=== PATIENT | female | born 1960 | race Two or more races ===

== ENCOUNTER → 2020-08-12 | Outpatient (CLI) | payer OTHER ==
--- NOTE | 2020-08-12 10:38 | Diagnostic Imaging Report ---
Exam: KUB. Clinical History: Abdominal pain Comparison: None Findings: Frontal view of the abdomen demonstrates a nonobstructive bowel gas pattern with moderate retained stool. There are no suspicious calcifications.No acute bone abnormality. Impression: Findings which could be due to constipation. Signed by: Dr. Kenneth March M.D. on 08/12/2020 10:35 AM
== END ==
LOC: MAMMO 08:58
PROVIDERS: ATTEND Internal Medicine
DX: Z12.31 Encounter for screening mammogram for malignant neoplasm of breast (principal); K66.0 Peritoneal adhesions (postprocedural) (postinfection)
CPT/HCPCS: 74018; 77067